=== PATIENT | female | born 1995 | race Caucasian/White ===

== ENCOUNTER 2017-05-29 14:33 | Emergency (ER) | payer SELFPAY ==
[2017-05-29 15:25] VITALS: BP 119/64
--- NOTE | 2017-05-29 15:27 | UC ---
Skin Complaint HPI - History of Current Complaint Stated Complaint: SUNBURN Hx Obtained From: Patient Hx Last Menstrual Period: 03/06/13 ?: No Onset/Duration: Sudden Onset - sunburn tuesday on [place]., Lasting Days - 2 , Still Present Skin Exposure Onset/Duration: Days Ago - 2 Onset Severity: Moderate Current Severity: Moderate Location: Diffuse Character: Pain, Redness Aggravating: Clothing, Touch Alleviating: OTC Meds Associated Signs & Symptoms: Positive: Nausea - the first day., Chills - the first day. Related History: Possible Reaction to: Environmental Exposure - Sun. - Allergy/Home Medications Allergies/Adverse Reactions: Allergies Allergy/AdvReac Type Severity Reaction Status Date / Time No Known Allergies Allergy Verified 05/29/17 15:16 Home Medications: Home Medications Hydrocortisone (Topical) [First-Hydrocortisone] 10 % EX PRN 05/29/17 [History] Ibuprofen TAB* [Advil TAB*] 600 mg PO Q6H PRN 05/29/17 [History Confirmed ] Review of Systems Constitutional: Chills Skin: Rash - sunburn. All Other Systems Reviewed And Are Negative: Yes PMH/Surg Hx/FS Hx/Imm Hx Previously Healthy: Yes - Surgical History Surgical History: None - Family History Known Family History: Positive: Diabetes Negative: Cardiac Disease, Hypertension - Social History Occupation: Student Lives: With Family Substance Use Type: None Smoking Status (MU): Never Smoked Tobacco Have You Smoked in the Last Year: No - Immunization History Vaccination Up to Date: Yes Physical Exam Triage Information Reviewed: Yes Appearance: No Pain Distress, Well-Nourished, Ill-Appearing - fatigued Vital Signs Reviewed: Yes ENT: Positive: Pharynx normal, TMs normal Neck exam: Normal Respiratory Exam: Normal Cardiovascular Exam: Normal Musculoskeletal Exam: Normal Neurological Exam: Normal Psychological Exam: Normal Skin: Positive: Other - first degree sunburn over face, upper back, chest, abdomen. Course/Dx - Differential Diagnoses - Skin Complaint Differential Diagnoses: Allergic Reaction, Cellulitis, Heat Stroke - Diagnoses Provider Diagnoses: Sunburn first degree 67% BSA Discharge - Discharge Plan Condition: Stable Disposition: HOME Patient Education Materials: Sunburn (ED), Skin Cancer Prevention (ED) Additional Instructions: For the face, Neutragena Baby Pure and Free or Blue Lizard Face or Sensitive. For the rest of the body, Coppertone Waterbabies Pure and Simple. Apply before going out into the sun and rub in well until it disappears.
== END 2017-05-29 16:00 | disposition home or self-care (01) ==
LOC: UCCORT 14:33
DX: L55.0 Sunburn of first degree (principal)
CPT/HCPCS: 99201; G0463

== ENCOUNTER 2018-09-19 11:24 | Emergency (ER) | payer BC ==
[2018-09-19 11:42] VITALS: BP 145/84
[2018-09-19] MEDS ORDERED: Ondansetron ODT TAB* 4 MG PO ONE (11:50)
--- NOTE | 2018-09-19 11:59 | UC ---
General HPI - HPI Summary HPI Summary: Patient states that this past Tuesday she fell and struck the left side of her head on a curb after a night drinking. She admits that she was intoxicated at the time and recalls hitting her head but can't recall after that. She states that her friends got her home. The next day she was experiencing nausea as well as pain and swelling at the site of where she struck her head. She also had some questionable mild headache. She isn't certain if it was from alcohol or from the head injury. She is here today for concerns of ongoing concussion which she describes as diffuse pressure in her head and recurrent nausea with meals. She admits to being photophobic but denies any associated visual or balance issues. Patient offers that she does have some mild sinus congestion which is consistent with a cold. She is not concerned about the head cold. She denies any associated neck or back pain. She denies any other injuries and offers no other complaints. - History of Current Complaint Chief Complaint: UCHeadache Stated Complaint: HEADACHE NAUSEA HEAD INJURY Time Seen by Provider: 09/19/18 11:40 Hx Obtained From: Patient Hx Last Menstrual Period: 03/06/13 Pain Intensity: 6 Alleviating: NOTHING Associated Signs & Symptoms: Positive: Nausea - Allergy/Home Medications Allergies/Adverse Reactions: Allergies Allergy/AdvReac Type Severity Reaction Status Date / Time No Known Allergies Allergy Verified 09/19/18 11:35 Home Medications: Home Medications Control Pill 1 tab PO DAILY 09/19/18 [History Confirmed 09/19/18] C/Ech/Stjwort/Eldr/Sging/Hrb30 [Cold Defense Fighter] 1 cap PO ONCE 09/19/18 [ History Confirmed 09/19/18] PMH/Surg Hx/FS Hx/Imm Hx Previously Healthy: Yes - Surgical History Surgical History: None - Family History Known Family History: Positive: Diabetes Negative: Cardiac Disease, Hypertension - Social History Occupation: Employed Full-time, Student Lives: Alone Alcohol Use: Occasionally Substance Use Type: None Smoking Status (MU): Never Smoked Tobacco Have You Smoked in the Last Year: No - Immunization History Vaccination Up to Date: Yes Review of Systems Constitutional: Negative Skin: Negative Eyes: Negative ENT: Negative Respiratory: Negative Cardiovascular: Negative Gastrointestinal: Nausea Genitourinary: Negative Motor: Negative Neurovascular: Negative Musculoskeletal: Negative Neurological: Headache Psychological: Negative Is Patient Immunocompromised?: No All Other Systems Reviewed And Are Negative: Yes Physical Exam Triage Information Reviewed: Yes Appearance: Well-Appearing Vital Signs: Initial Vital Signs Temp 98.3 F 09/19/18 11:38 Pulse 80 09/19/18 11:38 Resp 15 09/19/18 11:38 BP 145/84 09/19/18 11:38 Pulse Ox 100 09/19/18 11:38 Vital Signs Reviewed: Yes Eyes: Positive: Conjunctiva Clear, Other: - PERRL, EOMI ENT: Positive: Pharynx normal, TMs normal. Negative: Nasal congestion, Nasal drainage Neck: Positive: Supple, Nontender, No Lymphadenopathy, Other: - C-spine is non tender Respiratory: Positive: Lungs clear, Normal breath sounds Cardiovascular: Positive: RRR, No Murmur Abdomen Description: Positive: Nontender, No Organomegaly, Soft Bowel Sounds: Positive: Present Musculoskeletal: Positive: ROM Intact, Other: - Thorcaic and lumbar spine are non tender. Neurological: Positive: Other: - A&Ox3. CXN 2-12 grossly intact. Steady gait. Negative rhomberg and pronator drift. Rapid alternating moved with ease. 5/5 strenght and 2+ reflexes x 4. Superficial sensation intact x4. Psychological: Positive: Age Appropriate Behavior Skin Exam: Normal Diagnostics - Radiology No standard instances Radiology Interpretation Completed By: Radiologist - IMPRESSION: There is no evidence of intracranial mass or hemorrhage noted. CT BRAIN Course/Dx - Course Course Of Treatment: repeat BP improved. CT brain unremarkable. s/s's c/w a concussion. - Differential Dx - Multi-Symptom Provider Diagnoses: Concussion Discharge - Sign-Out/Discharge Documenting (check all that apply): Patient Departure All imaging exams completed and their final reports reviewed: Yes - Discharge Plan Condition: Stable Disposition: HOME Patient Education Materials: Concussion (ED) Forms: *Gen. Provider Communication Referrals: Sadaf Welch MD [Medical Doctor] - As Soon As Possible Additional Instructions: GO TO THE ER FOR ANY WORSENING - Billing Disposition and Condition Condition: STABLE Disposition: Home
--- NOTE | 2018-09-19 12:10 | RAD ---
Indication: Left head injury. CT of the brain performed without IV contrast. Ventricular structures are midline. No midline shift is noted. The extra-axial spaces are unremarkable. There is no evidence of intracranial mass or hemorrhage. No other high or low density lesions are identified. Mastoid air cells and paranasal sinuses are otherwise unremarkable. IMPRESSION: There is no evidence of intracranial mass or hemorrhage noted.
== END 2018-09-19 12:20 | disposition home or self-care (01) ==
LOC: UCCORT 11:24
DX: S06.0X0A Concussion without loss of consciousness, initial encounter (principal); W19.XXXA Unspecified fall, initial encounter; Y92.9 Unspecified place or not applicable; W22.8XXA Striking against or struck by other objects, initial encounter
CPT/HCPCS: 70450; 99211; A9270-GY; G0463